=== PATIENT | female | born 1955 | race Two or more races ===

== ENCOUNTER → 2017-07-11 | Outpatient (CLI) | payer OTHER ==
[~2017-07-11] MED LIST: CELEBREX200MG PO; DIOVAN HCT 160-1 TAB; NABUMETONE500 MG PO; TORADOL60 MG IM
== END | disposition home or self-care (01) ==
LOC: RAD 16:43
DX: S83.402A Sprain of unspecified collateral ligament of left knee, initial encounter (principal)

== ENCOUNTER → 2020-08-10 | Outpatient (CLI) | payer OTHER | END | disposition home or self-care (01) | LOC: PPH VACUNA | PROVIDERS: ATTEND Emergency Medicine Pediatric Emergency Medicine | DX: Z23 Encounter for immunization (principal) ==

== ENCOUNTER → 2021-03-23 | Outpatient (CLI) | payer OTHER | END | disposition home or self-care (01) | LOC: PPH VACUNA 08:00 | PROVIDERS: ATTEND Emergency Medicine Pediatric Emergency Medicine | DX: Z23 Encounter for immunization (principal) ==

== ENCOUNTER 2021-04-12 10:47 | Outpatient (CLI) | payer OTHER | END 2021-04-12 10:52 | disposition home or self-care (01) | LOC: RAD 10:47 | PROVIDERS: ATTEND Internal Medicine | DX: N60.12 Diffuse cystic mastopathy of left breast (principal); N60.11 Diffuse cystic mastopathy of right breast; Z12.31 Encounter for screening mammogram for malignant neoplasm of breast; M15.8 Other polyosteoarthritis; M81.6 Localized osteoporosis [Lequesne]; E04.1 Nontoxic single thyroid nodule; S80.912A Unspecified superficial injury of left knee, initial encounter; S83.207A Unspecified tear of unspecified meniscus, current injury, left knee, initial encounter | CPT/HCPCS: 73718 ==

== ENCOUNTER → 2021-04-12 14:08 | Outpatient (CLI) | payer OTHER | END | disposition home or self-care (01) | LOC: NUCLEAR 10:53 | PROVIDERS: ATTEND Internal Medicine | DX: M81.0 Age-related osteoporosis without current pathological fracture (principal) ==

== ENCOUNTER 2021-10-03 09:00 | Outpatient (CLI) | payer OTHER | END 2021-10-03 09:15 | disposition home or self-care (01) | LOC: PPH VACUNA 09:00 | PROVIDERS: ATTEND Emergency Medicine Pediatric Emergency Medicine | DX: Z23 Encounter for immunization (principal) ==

== ENCOUNTER 2022-06-20 11:42 | Outpatient (CLI) | payer OTHER | END 2022-06-20 11:44 | disposition home or self-care (01) | LOC: RAD 11:42 | PROVIDERS: ATTEND Internal Medicine | DX: M54.2 Cervicalgia (principal); M54.50 Low back pain, unspecified ==